=== PATIENT | female | born 2000 | race Caucasian/White ===

== ENCOUNTER 2020-06-20 00:04 | Emergency (ER) | payer BC ==
[2020-06-20] MEDS ORDERED: Ibuprofen 800 MG Tab PO ONE (00:32)
[2020-06-20] MEDS ORDERED: Bacitracin Oint 1 GM U/D Packet TOP ONE (00:33)
--- NOTE | 2020-06-20 00:36 | EDM.PDOC ---
ED HPI GENERAL MEDICAL PROBLEM - General Chief Complaint: Burn Stated Complaint: SUNBURN LT ARM Time Seen by Provider: 06/20/20 00:17 - History of Present Illness INITIAL COMMENTS - FREE TEXT/NARRATIVE: History of present illness: Patient presents with a sunburn she was out in the sun a day and was not wearing sunscreen and now she is here with a blistering painful sunburn to her face her shoulders and a little bit to her upper thighs. No other complaints no other concerns vaccines are up-to-date no medical problems no allergies nothing makes it better or worse because she has not tried anything to make it better Review of systems: As per history of present illness and below otherwise all systems reviewed and negative. Past medical history: As per history of present illness and as reviewed below otherwise noncontri butory. Surgical history: As per history of present illness and as reviewed below otherwise noncontributory. Social history: No reported history of drug or alcohol abuse. Family history: As per history of present illness and as reviewed below otherwise noncontributory. Physical exam: HEENT: Atraumatic, normocephalic, pupils reactive, negative for conjunctival pallor or scleral icterus, mucous membranes moist, throat clear, neck supple, nontender, trachea midline. Lungs: Clear to auscultation, breath sounds equal bilaterally, chest nontender. Heart: S1S2, regular, negative for clicks, rubs, or JVD. Abdomen: Soft, nondistended, nontender. Negative for masses or hepatosplenomegaly. Negative for costovertebral tenderness. Pelvis: Stable nontender. Genitourinary: Deferred. Rectal: Deferred. Extremities: Atraumatic, negative for cords or calf pain. Neurovascular unremarkable. Neuro: Awake, alert, oriented. Cranial nerves II through XII unremarkable. Cerebellum unremarkable. Motor and sensory unremarkable throughout. Exam nonfocal. Skin: There is mostly first-degree sunburn on the upper extremities and face but there is some areas of second-degree sunburn on the lateral upper arms bilaterally with blistering and ruptured blisters weeping clear fluid no evidence of infection. Consisting of second-degree or worse consisting no more of 2% body surface area Diagnostics: [] Therapeutics: Ledesma bacitracin [] Impression: [] Plan: Home naproxen by Solarcaine aloe vera gel and use as directed. [] Definitive disposition and diagnosis as appropriate pending reevaluation and review of above. Other Treatments [employer]: [place], burn cream Bilateral Upper Leg Pain Score (Numeric/FACES): 5 - Related Data Allergies Allergy/AdvReac Type Severity Reaction Status Date / Time No Known Allergies Allergy Verified 06/20/20 00:26 Home Meds: Home Meds Naproxen [Naprosyn] 500 mg PO Q12HR #20 tab 06/20/20 [Rx] Past Medical History - Past Health History Medical/Surgical History: Denies Medical/Surgical History Social & Family History - Tobacco Use Smoking Status *Q: Never Smoker Second Hand Smoke Exposure: Yes - Caffeine Use Caffeine Use: Reports: Soda - Recreational Drug Use Recreational Drug Use: No ED ROS GENERAL - Review of Systems Review Of Systems: See Below ED EXAM, GENERAL - Physical Exam Exam: See Below Course - Vital Signs Text/Narrative:: Patient was instructed on how to care for sunburns at home how to prevent sunburns in the future she will be given Motrin in the ED naproxen at home she is to pick out hand the appropriate products at the pharmacy when they open tomorrow. Last Recorded V/S: Last Vital Signs Temp 36.8 C 06/20/20 00:22 Pulse 96 06/20/20 00:22 Resp 16 06/20/20 00:22 BP 129/79 06/20/20 00:22 Pulse Ox 96 06/20/20 00:22 - Orders/Labs/Meds Orders: Active Orders 24 hr Category Date Time Status Bacitracin [Bacitracin Oint 1 GM] Med 06/20/20 00:33 Once 1 dose TOP ONETIME ONE Ibuprofen [Motrin] Med 06/20/20 00:32 Once 800 mg PO ONETIME ONE Medication Orders Ibuprofen (Motrin) 800 mg PO ONETIME ONE Stop: 06/20/20 00:33 Meds: Medications Generic Name Dose Route Start Last Admin Trade Name Freq PRN Reason Stop Dose Admin Ibuprofen 800 mg 06/20/20 00:32 Motrin PO 06/20/20 00:33 ONETIME ONE Departure - Departure Time of Disposition: 00:35 Disposition: Left Without Being Seen 07 Condition: Good Clinical Impression: Sunburn - Discharge Information *PRESCRIPTION DRUG MONITORING PROGRAM REVIEWED*: Not Applicable *COPY OF PRESCRIPTION DRUG MONITORING REPORT IN PATIENT GARRET: Not Applicable Instructions: Burn Care, Adult, [id number], Sunburn, Adult, [id number] Referrals: PCP,None [Primary Care Provider] - Additional Instructions: The following information is given to patients seen in the emergency department who are being discharged to home. This information is to outline your options for follow-up care. We provide all patients seen in our emergency department with a follow-up referral. The need for follow-up, as well as the timing and circumstances, are variable depending upon the specifics of your emergency department visit. If you don't have a primary care physician on staff, we will provide you with a referral. We always advise you to contact your personal physician following an emergency department visit to inform them of the circumstance of the visit and for follow-up with them and/or the need for any referrals to a consulting specialist. The emergency department will also refer you to a specialist when appropriate. This referral assures that you have the opportunity for follow-up care with a specialist. All of these measure are taken in an effort to provide you with optimal care, which includes your follow-up. Under all circumstances we always encourage you to contact your private physician who remains a resource for coordinating your care. When calling for follow-up care, please make the office aware that this follow-up is from your recent emergency room visit. If for any reason you are refused follow-up, please contact the [facility] Emergency Department at and asked to speak to the emergency department charge nurse. [facility] - Primary Care [address] [place] [address] [id number] [facility] [address] [place] [id number] Sepsis Event Note (ED) - Evaluation Sepsis Screening Result: No Definite Risk - Focused Exam Vital Signs: Vital Signs Temp Pulse Resp BP Pulse Ox 06/20/20 00:22 36.8 C 96 16 129/79 96 - My Orders Last 24 Hours: My Active Orders 06/20/20 00:32 Ibuprofen [Motrin] 800 mg PO ONETIME ONE 06/20/20 00:33 Bacitracin [Bacitracin Oint 1 GM] 1 dose TOP ONETIME ONE - Assessment/Plan Last 24 Hours: My Active Orders 06/20/20 00:32 Ibuprofen [Motrin] 800 mg PO ONETIME ONE 06/20/20 00:33 Bacitracin [Bacitracin Oint 1 GM] 1 dose TOP ONETIME ONE
[2020-06-20] MEDS ORDERED: Bacitracin Oint 28.35 GM Tube ONE (00:38)
== END 2020-06-20 00:53 | disposition home or self-care (01) ==
LOC: MW.ED 00:04
DX: L55.1 Sunburn of second degree (principal); Z77.22 Contact with and (suspected) exposure to environmental tobacco smoke (acute) (chronic)
CPT/HCPCS: 99282; 99283; A9270-GY